=== PATIENT | female | born 1970 | race Caucasian/White ===

== ENCOUNTER 2019-09-16 00:47 | Observation (INO) ==
[2019-09-16] MEDS ORDERED: Naloxone 0.4 MG/ML INJ IVP PRN (03:25)
[2019-09-16] MEDS ORDERED: Nitroglycerin 0.4 MG TAB.SUBL SL PRN (05:14)
[2019-09-16] MEDS ORDERED: Isovue-370 500 ML BOTTLE IVP ONE (05:37)
[2019-09-16] MEDS ORDERED: Regadenoson 0.4 MG/5 ML SYRINGE IVP ONE (06:13)
[2019-09-16] MEDS: Insulin LISPRO 300 UNITS/3 ML VIAL SQ SCH ×3 (07:10→18:40)
[2019-09-16 08:05] LABS: Alanine Aminotransferase 13 Units/L (7-52); Albumin 3.7 g/dL (3.5-5.7); Albumin/Globulin Ratio 1.4 (1.1-2.2); Alkaline Phosphatase 51 Units/L (34-104); Aspartate Amino Transferase 13 Units/L (13-39); BUN/Creatinine Ratio 25 (6-26); Bilirubin,Direct 0.1 mg/dL (0.0-0.2); Bilirubin,Indirect 0.2 mg/dL (0.0-1.0); Bilirubin,Total 0.3 mg/dL (0.3-1.0); Blood Urea Nitrogen 14 mg/dL (6-20); Calcium 9.1 mg/dL (8.6-10.3); Carbon Dioxide 27 mEq/L (23-29); Chloride 103 mEq/L (98-107); Globulin 2.7 g/dL (2.4-3.5); Glucose 144 mg/dL (70-105); Osmolality,Calculated 289 (280-300); Potassium 3.3 mEq/L (3.5-5.1); Sodium 138 mEq/L (136-145); Total Protein 6.4 g/dL (6.4-8.9); Troponin I < 0.03 ng/mL (< 0.04); eGFR For African Americans > 60 (> 60); eGFR For Non-African Americans > 60 (> 60)
[2019-09-16 08:18] LABS: Thyroid Stimulating Hormone 1.115 mcIU/mL (0.340-5.600)
[2019-09-16] MEDS: *HR* Enoxaparin 40 MG/0.4 ML SYRINGE SQ SCH (12:22)
[2019-09-16] MEDS ORDERED: D5% in Water 1,000 ML IVC PRN (19:48)
[2019-09-16] MEDS ORDERED: Dextrose Gel 15 GM/37.5 ML TUBE PO PRN ×2 (19:48)
[2019-09-16] MEDS ORDERED: *HR* Dextrose 50 % in Water (Syg) 50 ML SYRINGE IVP PRN (19:48)
[2019-09-16] MEDS ORDERED: Insulin LISPRO 300 UNITS/3 ML VIAL SQ SCH (21:00)
[2019-09-16 21:25] LABS: Troponin I < 0.03 ng/mL (< 0.04)
[2019-09-16 21:34] LABS: Potassium 4.2 mEq/L (3.5-5.1)
[2019-09-17 05:56] LABS: Basophils % 0.5 %; Eosinophils # 0.2 K/mcL (0.0-0.6); Hematocrit 36.1 % (35.3-44.9); Hemoglobin 11.6 g/dL (11.5-15.4); Immature Granulocytes % 0.2 % (0-4); Lymphocytes # 2.7 K/mcL (0.6-4.6); Lymphocytes % 43.1 %; Mean Corpuscular HGB Conc 32.1 g/dL (31.6-35.5); Mean Corpuscular Hemoglobin 28.6 pg (28.0-33.3); Mean Corpuscular Volume 88.9 fL (83.0-100.0); Monocytes # 0.4 K/mcL (0.0-1.3); Monocytes % 6.9 %; Neutrophils # 2.9 K/mcL (1.6-8.9); Platelet Count 251 K/mcL (140-400); Red Blood Count 4.06 M/mcL (3.82-4.97); Red Cell Distribution Width 12.6 % (11.5-14.5); Segmented Neutrophils % 46.3 %; White Blood Count 6.2 K/mcL (4.3-11.1)
[2019-09-17] MEDS: *HR* Enoxaparin 40 MG/0.4 ML SYRINGE SQ SCH (06:01)
[2019-09-17 06:16] LABS: BUN/Creatinine Ratio 21 (6-26); Blood Urea Nitrogen 13 mg/dL (6-20); Calcium 8.8 mg/dL (8.6-10.3); Carbon Dioxide 29 mEq/L (23-29); Chloride 105 mEq/L (98-107); Chol/HDL Ratio 4.1 (0-4.9); Cholesterol 180 mg/dL (< 200); Glucose 138 mg/dL (70-105); HDL Cholesterol 44 mg/dL (40-59); LDL Cholesterol,Calculated 109 mg/dL (0-99); Osmolality,Calculated 286 (280-300); Sodium 137 mEq/L (136-145); Triglycerides 134 mg/dL (< 150); eGFR For African Americans > 60 (> 60); eGFR For Non-African Americans > 60 (> 60)
[2019-09-17 06:32] VITALS: BP 108/72
[2019-09-17] MEDS ORDERED: Insulin LISPRO 300 UNITS/3 ML VIAL SQ SCH (07:30)
[2019-09-17] MEDS ORDERED: hydroCHLOROthiazide 25 MG TABLET PO SCH (09:00)
[2019-09-17] MEDS ORDERED: amLODIPine 5 MG TABLET PO SCH (09:00)
[2019-09-17] MEDS ORDERED: lisinopriL 20 MG TABLET PO SCH (09:00)
[2019-09-17 13:10] LABS: Estimated Average Glucose 180 mg/dl
== END 2019-09-17 11:13 | disposition home or self-care (01) ==
LOC: 3BNU → SUATTDRO 02:42
PROVIDERS: ADMIT Internal Medicine; ATTEND Internal Medicine